=== PATIENT | male | born 1955 | race Caucasian/White ===

== ENCOUNTER → 2018-01-07 | Outpatient (CLI) | payer OTHER ==
[~2018-01-07] MED LIST: ARAVA20 MG PO; BAYER CHEWABLE81 MG PO; CHLORTHALIDONE25 MG PO; FOLIC ACID1 MG PO; METHOTREXATE 22.5 MG PO; NORVASC5 MG PO; PAXIL10 MG PO; TOPROL XL25 MG PO; TURMERIC500 MG PO; VITAMIN D400 UNI1 PO; VITAMINC500 PO
== END ==
LOC: M.RAD 10:29
DX: M05.9 Rheumatoid arthritis with rheumatoid factor, unspecified (principal); G47.33 Obstructive sleep apnea (adult) (pediatric); E78.5 Hyperlipidemia, unspecified

== ENCOUNTER → 2018-10-14 | Outpatient (CLI) | payer MEDICARE ==
[2018-10-14 16:24] LABS: CREATININE 1.2 mg/dL (0.6-1.3)
== END ==
LOC: M.CT 15:58
PROVIDERS: Internal Medicine
DX: R16.0 Hepatomegaly, not elsewhere classified (principal); K37 Unspecified appendicitis

== ENCOUNTER → 2020-05-03 | Outpatient (CLI) | payer MEDICARE ==
--- NOTE | 2020-05-10 18:54 | PF ---
[address] [address] PULMONARY FUNCTION REPORT Name: AKI CALDWELL Room: [facility]#: [id number] Admission: 05/03/20 Attend Phys: Pawel Hassan MD Discharge: Date of : 51 Report #: [id number] THIS REPORT FOR: cc: Chris Monahan MD, Dean L. MD ~ Pawel Hassan MD DATE OF SERVICE: 05/03/2020 The FEV1/FVC ratio is normal at 73% with an FVC normal at 84% and FEV1 also normal at 82%. The SRN29-32 is normal at 81%. After the administration of a bronchodilator, there is no significant change in any of these values. The patient's post-bronchodilator FEV1 is noted to be 3.23 liters. The patient's total lung capacity and residual volume are not available. The DLCO is reported to be markedly elevated to 231% as adjusted for hemoglobin. IMPRESSION: 1. Spirometry is normal. 2. I do not have all of the lung volumes available. 3. There is marked elevation in DLCO. May consider repeating the test to verifying these values. Etiology of elevation in DLCO includes bronchial asthma or pulmonary hemorrhage or hyperventilation. <ELECTRONICALLY SIGNED> By: Pawel Hassan MD 05/10/20 1854 1745 MD candace Rodriguez
== END ==
LOC: M.PUL 04-26 14:11
PROVIDERS: ATTEND Internal Medicine Critical Care Medicine
DX: J45.20 Mild intermittent asthma, uncomplicated (principal); Z88.8 Allergy status to other drugs, medicaments and biological substances

== ENCOUNTER → 2020-11-02 | Outpatient (CLI) | payer MEDICARE ==
[2020-11-02 13:21] LABS: HEMATOCRIT 39.8 % (42.0-52.0); HEMOGLOBIN 13.4 gm/dL (14.0-18.0); MCHC 33.7 g/dL (28.0-37.0); MCV 86.3 fL (80.0-100.0); MPV 8.1 fl. (7.2-11.1); RBC 4.61 mil/uL (4.50-6.00); RDW-CV 14.3 % (10.5-14.5); WBC 5.8 thou/uL (4.0-11.0)
[2020-11-02 13:38] LABS: CALCIUM 8.8 mg/dL (8.5-10.1); CREATININE 1.2 mg/dL (0.6-1.3)
[2020-11-02 13:43] LABS: ALBUMIN 4.5 g/dL (3.4-5.0); MAGNESIUM 1.8 mg/dL (1.8-2.4); TOTAL BILIRUBIN 0.7 mg/dL (<0.1-1.0); TOTAL PROTEIN 7.3 g/dL (6.4-8.2)
== END ==
LOC: M.CT 12:28
PROVIDERS: ATTEND Internal Medicine
DX: I45.10 Unspecified right bundle-branch block (principal); J34.1 Cyst and mucocele of nose and nasal sinus; R51.9 Headache, unspecified; R42 Dizziness and giddiness; R00.1 Bradycardia, unspecified

== ENCOUNTER → 2021-05-01 | Outpatient (CLI) | payer MEDICARE | LOC: M.RAD 09:40 | PROVIDERS: ATTEND Internal Medicine | DX: R06.02 Shortness of breath (principal); R06.00 Dyspnea, unspecified ==